=== PATIENT | male | born 1990 | race Hispanic/Latino ===

== ENCOUNTER 2019-05-09 14:03 | Emergency (ER) | payer OTHER ==
--- NOTE | 2019-05-09 15:38 | RAD REPORT ---
EXAM DESCRIPTION: RAD - Shoulder Left 2 View - 05/09/2019 2:45 pm CLINICAL HISTORY: Left shoulder pain, recent dislocation with self reduction COMPARISON: None. TECHNIQUE: Internal and external rotation views of the left shoulder were obtained. FINDINGS: There is no fracture or dislocation. AC joint is normal in appearance. No glenoid or humer al head deformity seen. Acromial humeral joint space is normal. IMPRESSION: Negative two-view left shoulder examination.
--- NOTE | 2019-05-09 16:04 | ER ---
Nurse's Notes [facility] Name: Yuan Irizarry Jr Age: 29 yrs Sex: Male : 1990 Arrival Date: 05/09/2019 Time: 14:05 Bed 18 Private MD: Diagnosis: Pain in left shoulder Presentation: 05/09 14:11 Presenting complaint: Patient states: left shoulder dislocation done on Thursday, "One sv of the guys popped it back into place and I want to make sure everything is ok.". Transition of care: patient was not received from another setting of care. Onset of symptoms was May 07, 2019. Risk Assessment: Do you want to hurt yourself or someone else? Patient reports no desire to harm self or others. Initial Sepsis Screen: Does the patient meet any 2 criteria? No. Patient's initial sepsis screen is negative. Does the patient have a suspected source of infection? No. Patient's initial sepsis screen is negative. Care prior to arrival: left arm sling. 14:11 Method Of Arrival: Ambulatory sv 14:11 Acuity: HERBIE 4 sv Triage Assessment: 14:11 General: Appears in no apparent distress. comfortable, Behavior is calm, cooperative, sv appropriate for age. Pain: Complains of pain in anterior aspect of left shoulder. Neuro: Level of Consciousness is awake, alert, obeys commands, Gait is steady. Respiratory: Respiratory effort is even, unlabored, Respiratory pattern is regular, symmetrical. Historical: - Allergies: 14:12 No Known Allergies; sv - PMHx: 14:12 None; sv - PSHx: 14:12 Appendectomy; sv - Immunization history:: Adult Immunizations up to date. - Social history:: Smoking status: Patient/guardian denies using tobacco. - Ebola Screening: : No symptoms or risks identified at this time. Screenin:28 Abuse screen: Denies threats or abuse. Nutritional screening: No deficits noted. la1 Tuberculosis screening: No symptoms or risk factors identified. Fall Risk None identified. Assessment: 15:27 General: Appears in no apparent distress. Behavior is calm, cooperative. Pain: la1 Complains of pain in anterior aspect of left shoulder. Neuro: Level of Consciousness is awake, alert, obeys commands, Oriented to person, place, time, situation. Cardiovascular: Capillary refill < 3 seconds Patient's skin is warm and dry. Respiratory: Airway is patent Respiratory effort is even, unlabored. GI: No signs and/or symptoms were reported involving the gastrointestinal system. : No signs and/or symptoms were reported regarding the genitourinary system. Musculoskeletal: Circulation, motion, and sensation intact. Capillary refill < 3 seconds, is brisk, in bilateral fingers. Range of motion: intact in all extremities. Vital Signs: 14:13 BP 126 / 81; Pulse 79; Resp 18; Temp 98.3; Pulse Ox 99% ; Weight 74.84 kg; Height 5 ft. sv 5 in. (165.10 cm); Pain 5/10; 14:13 Body Mass Index 27.46 (74.84 kg, 165.10 cm) sv ED Course: 14:05 Patient arrived in ED. as 14:12 Triage completed. sv 14:14 [facility] kb 14:14 Arm band placed on. sv 14:15 Fabián Dalton MD is Attending Physician. kb 14:34 Ronny Hudson, EVELINA is Primary Nurse. la1 14:45 X-ray completed. Portable x-ray completed in exam room. Patient tolerated procedure kw well. 14:50 Shoulder Left (2 View) XRAY In Process Unspecified. EDMS 15:28 Patient has correct armband on for positive identification. la1 15:59 Shoulder Left (2 View) XRAY In Process Unspecified. EDMS 16:19 No provider procedures requiring assistance completed. Patient did not have IV access la1 during this emergency room visit. Administered Medications: No medications were administered Outcome: 16:04 Discharge ordered by . kb 16:19 Discharged to home ambulatory. la1 16:19 Condition: stable 16:19 Discharge instructions given to patient, Instructed on discharge instructions, follow up and referral plans. medication usage, Demonstrated understanding of instructions, follow-up care. 16:19 Patient left the ED. la1 Signatures: Dispatcher [employer] EDMS Tana Navarro FNP-C FNP-Ckb Verde, Stephanie, RN RN Dea Pearson Kimberlee kw Attema, Lee, RN RN la1 Corrections: (The following items were deleted from the chart) 14:14 14:13 Pulse 79bpm; Resp 18bpm; Pulse Ox 99%; Temp 98.3F; 74.84 kg; Height 5 ft. 5 in.; sv BMI: 27.4; Pain 5/10; sv
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
--- NOTE | 2019-05-09 16:08 | RAD REPORT ---
EXAM DESCRIPTION: RAD - Shoulder Left 2 View - 05/09/2019 3:58 pm CLINICAL HISTORY: Dislocation, patient reported self reduction COMPARISON: Left shoulder same date TECHNIQUE: Internal and external rotation views of the left shoulder were obtained. FINDINGS: No fracture changes are identified. Left humeral head positioning is not substantially dif ferent from comparison. Dislocation is not identified. AC joint is normal in appearance. No acute or suspicious findings. IMPRESSION: Left humeral head appears to be in anatomic position with no fracture seen. Concerns about glenohumeral joint positioning can be further evaluated with trans axillary or scapula Y-views.
== END 2019-05-09 16:19 | disposition home or self-care (01) ==
LOC: ER 14:03
PROC: 0RSKXZZ Reposition Left Shoulder Joint, External Approach (ICD-10-PCS; principal; 2019-05-09)
DX: S43.005A Unspecified dislocation of left shoulder joint, initial encounter (principal); Y93.11 Activity, swimming; Y92.89 Other specified places as the place of occurrence of the external cause
CPT/HCPCS: 99283